=== PATIENT | female | born 1965 | race African-American/Black ===

== ENCOUNTER 2017-08-18 00:03 | Emergency (ER) | payer MEDICARE, OTHER ==
[~2017-08-18] VITALS: Ht 167.6 cm; Wt 81.0 kg
[~2017-08-18 00:03] MED LIST: CETI10 PO; PRED50 PO; RANI150T PO
[2017-08-18 00:05] VITALS: BP 119/78; PULSE 106; RESP 18; TEMP 99.7; O2SAT 99
[2017-08-18] MEDS ORDERED: MIRA50TA PO (00:22)
[2017-08-18] MEDS ORDERED: ALPR.5 PO (00:22)
[2017-08-18] MEDS ORDERED: IBUPROFEN 800 MG TAB PO ONE (00:30)
--- NOTE | 2017-08-18 00:41 | PD ---
HPI Chief Complaint: Cold / Flu Symptoms Time Seen by Provider: 00:27 Travel History International Travel<30 days: No Contact w/Intl Traveler<30days: No Traveled to known affect area: No History of Present Illness HPI 52-year-old female presents to the emergency department for complaint of 10 hours of myalgias arthralgias subjective fever chills and sore throat. 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 Patient did not receive the flu vaccine. Patient has been using NyQuil without symptom relief. PFSH Past Medical History Narrative Medical Breast cancer chemotherapy cholecystectomy overactive bladder Infuse-a -Port occasional alcohol use; nursing notes reviewed Cancer: Yes (LEFT BREAST CANCER) Cardiovascular Problems: No Chemotherapy: Yes (Left breast cancer) Diabetes: No Diminished Hearing: No Endocrine: No Gastrointestinal Disorders: No Genitourinary: No Hepatitis: No Hiatal Hernia: No Hypertension: No Immune Disorder: No Implanted Vascular Access Dvce: Yes (INFUSAPORT RIGHT CHEST) Musculoskeletal: No Neurologic: No Psychiatric: No Reproductive: No Respiratory: No Immunizations Current: No Thyroid Disease: No Tetanus Vaccination: Unknown Influenza Vaccination: No ?: Not LMP: Menopausal Menopausal: Yes Past Surgical History Abdominal Surgery: Yes (CHOLECYSTECTOMY) AICD: No Section: Yes (X 1) Cholecystectomy: Yes Gynecologic Surgery: Yes (C SECTION, LUMPECTOMY) Joint Replacement: No Pacemaker: No Other Surgery: Yes Social History Alcohol Use: Yes (RARELY) Tobacco Use: No Substance Use: No Allergies-Medications (Allergen,Severity, Reaction): Coded Allergies: No Known Allergies (Unverified Adverse Reaction, Unknown, 08/18/17) Reported Meds & Prescriptions Reported Meds & Active Scripts Active Reported Xanax (Alprazolam) 0.5 Mg Tab 0.5 Mg PO Q8H PRN Myrbetriq (Mirabegron) 50 Mg Tab 50 Mg PO DAILY Review of Systems Except as stated in HPI: all other systems reviewed are Neg General / Constitutional: Positive: Fever HENT: Positive: Sore Throat, Congestion Cardiovascular: No: Chest Pain or Discomfort Respiratory: Positive: Cough Gastrointestinal: No: Abdominal Pain Genitourinary: No: Flank Pain Musculoskeletal: Positive: Myalgias, Arthralgias Skin: No Rash Neurologic: No: Weakness Psychiatric: No: Anxiety Hematologic/Lymphatic: No: Lymph Node Enlargement Physical Exam Narrative GENERAL: Well-developed well-nourished female in no acute distress no respiratory distress SKIN: Warm and dry. HEAD: Normocephalic. EYES: No scleral icterus. No injection or drainage. ENT: Mucous membranes moist airway is patent NECK: Supple, trachea midline. No JVD or lymphadenopathy. CARDIOVASCULAR: Regular rate and rhythm without murmurs, gallops, or rubs. RESPIRATORY: Breath sounds equal bilaterally. No accessory muscle use. GASTROINTESTINAL: Abdomen soft, non-tender, nondistended. MUSCULOSKELETAL: No cyanosis, or edema. BACK: Nontender without obvious deformity. No CVA tenderness. Data Data Last Documented VS Vital Signs Date Time Temp Pulse Resp B/P (MAP) Pulse Ox O2 Delivery O2 Flow Rate FiO2 08/18/17 00:22 99 Room Air 08/18/17 00:05 99.7 106 18 119/78 (92) Orders Orders Group A Rapid Strep Screen (08/18/17 00:27) Influenzae A/B Antigen (08/18/17 00:27) Ibuprofen (Motrin) (08/18/17 00:30) Strep Culture (Group A) (08/18/17 00:40) MDM Medical Decision Making Medical Screen Exam Complete: Yes Emergency Medical Condition: Yes Medical Record Reviewed: Yes Interpretation(s) flu: neg rsa: neg Differential Diagnosis Pharyngitis sinusitis bronchitis pneumonia; patient is nontoxic appearing unlikely sepsis or meningitis Narrative Course Influenza and rapid strep specimens collected patient administered weight-based ibuprofen Influenza a/B antigen negative; rapid strep antigen negative; discussed with patient lab results and is desirous of a prescription for Tamiflu as 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 Patient is stable for outpatient management. Diagnosis Primary Impression: Acute viral syndrome Additional Impression: Influenza Referrals: Primary Care Physician call for appointment Patient Instructions: General Instructions Departure Forms: School Release, Please excuse from school until (free text option): no work x 2 days Tests/Procedures Additional Instructions: Increase fluid hydration Take acetaminophen/Tylenol every 4 hours for fever 100.4F or greater Take ibuprofen/Motrin/Advil 800 mg as often as every 8 hours as needed for fever 100.4F or greater or for pain associated with inflammation Follow-up with your primary care provider Return to the emergency department for a concerns or change in condition No work 2 days Med/Other Pt SpecificInfo: Prescription(s) given Scripts Oseltamivir (Tamiflu) 75 Mg Cap 75 MG PO BID for Mgmt Viral Infection for 5 Days, #10 CAP 0 Refills Prov: Sabiha Moore MD 08/18/17 Disposition: 01 DISCHARGE HOME Condition: Stable Sabiha Moore MD Aug 18, 2017 00:41
[2017-08-18] MEDS ORDERED: OSEL75 PO (01:01)
== END 2017-08-18 01:23 | disposition home or self-care (01) ==
LOC: PHED 00:03
DX: J11.1 Influenza due to unidentified influenza virus with other respiratory manifestations (principal); Z20.828 Contact with and (suspected) exposure to other viral communicable diseases; Z85.3 Personal history of malignant neoplasm of breast; Z90.49 Acquired absence of other specified parts of digestive tract; Z79.899 Other long term (current) drug therapy
CPT/HCPCS: 87081; 87804; 87880; 99283

== ENCOUNTER 2017-12-17 21:34 | Emergency (ER) | payer OTHER ==
[~2017-12-17] VITALS: Ht 170.2 cm; Wt 82.7 kg
[~2017-12-17 21:34] MED LIST changes: +ALPR.5 PO; -CETI10 PO; +MIRA50TA PO; +OSEL75 PO; -PRED50 PO; -RANI150T PO
[2017-12-17 21:37] VITALS: BP 131/76; PULSE 80; RESP 18; TEMP 98; O2SAT 100
[2017-12-17] MEDS ORDERED: CYCL10TA PO (21:56)
[2017-12-17] MEDS ORDERED: NAPR500 PO (21:56)
--- NOTE | 2017-12-17 21:56 | PD ---
HPI Chief Complaint: Musculoskeletal Complaint Time Seen by Provider: 21:41 Travel History International Travel<30 days: No Contact w/Intl Traveler<30days: No Traveled to known affect area: No History of Present Illness HPI The patient is a 52-year-old female who presents the emergency department for back pain. The patient states she bent over and lifted a car battery on the garage floor earlier today. Shortly thereafter the patient developed mid right thoracic pain under the scapula. The pain is worse with inspiration and rotation to the right. The pain is slightly better with massage and Ben[place], however, has been persistent. The patient denies any radiation of the pain to the low back or down the extremities. She denies any shortness of breath or anterior chest pain. She denies any rash in the right chest wall. Symptoms are moderate. Symptoms are aggravated after lifting a car battery, slightly alleviated with massage therapy and BenGay. She denies any fever or cough. PFSH Past Medical History Cancer: Yes (LEFT BREAST CANCER) Cardiovascular Problems: No Chemotherapy: Yes (Left breast cancer) Diabetes: No Diminished Hearing: No Endocrine: No Gastrointestinal Disorders: No Genitourinary: No Hepatitis: No Hiatal Hernia: No Hypertension: No Immune Disorder: No Implanted Vascular Access Dvce: Yes (INFUSAPORT RIGHT CHEST) Musculoskeletal: No Neurologic: No Psychiatric: No Reproductive: No Respiratory: No Immunizations Current: No Thyroid Disease: No Tetanus Vaccination: Unknown Influenza Vaccination: No ?: Not Menopausal: Yes Past Surgical History Abdominal Surgery: Yes (CHOLECYSTECTOMY) AICD: No Section: Yes (X 1) Cholecystectomy: Yes Gynecologic Surgery: Yes (C SECTION, LUMPECTOMY) Joint Replacement: No Pacemaker: No Other Surgery: Yes Social History Alcohol Use: Yes (RARELY) Tobacco Use: No Substance Use: No Allergies-Medications (Allergen,Severity, Reaction): Coded Allergies: No Known Allergies (Unverified Adverse Reaction, Unknown, 12/17/17) Reported Meds & Prescriptions Reported Meds & Active Scripts Active No Active Prescriptions or Reported Medications Review of Systems Except as stated in HPI: all other systems reviewed are Neg General / Constitutional: No: Fever Cardiovascular: No: Chest Pain or Discomfort Respiratory: No: Cough, Shortness of Breath Gastrointestinal: No: Nausea, Vomiting, Abdominal Pain Musculoskeletal: Positive: Pain Skin: No Rash Neurologic: No: Paresthesia, Sensory Disturbance Physical Exam Narrative GENERAL: Awake, alert, pleasant 32-year-old female who appears her stated age and is in no acute respiratory distress. She does appear in moderate discomfort. SKIN: Focused skin assessment warm/dry. HEAD: Atraumatic. Normocephalic. EYES: No injection or drainage per NECK: Trachea midline. No JVD. No tenderness of the midline cervical vertebrae. No tenderness over the superior trapezius. CARDIOVASCULAR: Regular rate and rhythm. No murmur appreciated. RESPIRATORY: No accessory muscle use. Clear to auscultation. Breath sounds equal bilaterally. Back: No tenderness of the thoracic or lumbar vertebrae. No CVA tenderness. No tenderness of the lumbar vertebrae. Mild tenderness of the right paravertebral muscle in the midthoracic region as well as just inferior to the scapula. Pain is elicited with rotation to the right. MUSCULOSKELETAL: No obvious deformities. No clubbing. No cyanosis. No edema. NEUROLOGICAL: Awake and alert. No obvious cranial nerve deficits. Motor grossly within normal limits. Normal speech. PSYCHIATRIC: Appropriate mood and affect; insight and judgment normal. Data Data Last Documented VS Vital Signs Date Time Temp Pulse Resp B/P (MAP) Pulse Ox O2 Delivery O2 Flow Rate FiO2 12/17/17 21:37 98.0 80 18 131/76 (94) 100 Orders Orders Ketorolac Inj (Toradol Inj) (12/17/17 22:00) Orphenadrine Inj (Norflex Inj) (12/17/17 22:00) Ed Discharge Order (12/17/17 21:50) [facility] Medical Decision Making Medical Screen Exam Complete: Yes Emergency Medical Condition: Yes Medical Record Reviewed: Yes Differential Diagnosis Differential diagnosis includes thoracic back strain, muscle spasm, pleurisy, pneumothorax, shingles, compression fracture. Narrative Course The patient's history and physical are consistent with a muscle strain in the midthoracic region. The patient is advised to apply ice and/or heat of the affected area, massage therapy as needed, and ibuprofen and Flexeril as directed. She is advised to follow-up with her primary physician and return if symptoms worsen or progress. No heavy lifting for 5 days. Diagnosis Primary Impression: Strain of muscle and tendon of back wall of thorax, initial encounter Patient Instructions: General Instructions Additional Instructions: Medications as directed. Ice and/or heat to the affected area. Massage therapy as needed. No heavy lifting for 5 days. Follow-up with her primary physician. Return if symptoms worsen or progress. Med/Other Pt SpecificInfo: Prescription(s) given Scripts Cyclobenzaprine (Flexeril) 10 Mg Tab 10 MG PO TID for Muscle Spasm for 5 Days, #15 TAB 0 Refills Prov: Carlito Loomis MD 12/17/17 Naproxen (Naprosyn) 500 Mg Tab 500 MG PO BID for 10 Days, #20 TAB 0 Refills Prov: Carlito Loomis MD 12/17/17 Disposition: 01 DISCHARGE HOME Condition: Stable Carlito Loomis MD December 17, 2017 21:56
[2017-12-17] MEDS ORDERED: KETOROLAC TROMETHAMINE 60 MG/2 ML (IM) VIAL IM ONE (22:00)
[2017-12-17] MEDS ORDERED: ORPHENADRINE INJ 60 MG/2 ML AMP IM ONE (22:00)
== END 2017-12-17 22:15 | disposition home or self-care (01) ==
LOC: PHEFT 21:34
DX: S29.012A Strain of muscle and tendon of back wall of thorax, initial encounter (principal); X50.0XXA Overexertion from strenuous movement or load, initial encounter; Z85.3 Personal history of malignant neoplasm of breast
CPT/HCPCS: 96372; 99283; J1885; J2360